=== PATIENT | male | born 1990 | race Hispanic/Latino ===

== ENCOUNTER 2018-02-05 17:15 | Emergency (ER) | payer OTHER, SELFPAY ==
[2018-02-05] MEDS ORDERED: Ketorolac Tromethamine 30 MG/ML VIAL ONE (17:50)
--- NOTE | 2018-02-05 18:39 | RAD ---
RIGHT KNEE FOUR VIEW: 02/05/18 HISTORY: Right knee pop causing pain. COMPARISON: None. FINDINGS: There are mild phleboliths in the prepatellar soft tissues. No significant joint effusion. No acute f racture or malalignment. Small medial compartment osteophytes. IMPRESSION: 1. No acute fracture or malalignment. 2. Possibly some dilated vessels in the medial and lateral soft tissues. recommend correlation f or venous insufficiency. POS: HOME
== END 2018-02-05 18:45 | disposition home or self-care (01) ==
LOC: ERS 17:15
DX: M25.561 Pain in right knee (principal)
CPT/HCPCS: 96372; J1885